=== PATIENT | male | born 1980 | race Caucasian/White ===

== ENCOUNTER 2024-09-12 00:20 | Emergency (ER) | payer OTHER, SELFPAY ==
[2024-09-12 00:22] VITALS: BP 151/88; PULSE 81; RESP 18; TEMP 36.8; O2SAT 98; BMI 41.3
[2024-09-12 00:24] VITALS: BP 151/88; PULSE 81; RESP 18; TEMP 36.8; O2SAT 98
--- NOTE | 2024-09-12 00:36 | ED.VIS.LOWEX ---
HPI History of Present Illness Chief Complaint: Wound Check Informant: patient Narrative Narrative: 44-year-old male had arthroscopic right knee surgery cleanout by Dr. Lewis 9 days ago. He states about 2 days ago started having increased pain and swelling along with some yellow clear discharge from one of the incisions that has gotten worse. Denies any fevers or systemic symptoms. Now he can barely bear weight on it or bend the knee. Denies any redness in the knee. Definitely a lot more swollen than it had been for the first week postoperative. Taking no anticoagulants right now. Not a diabetic. PFSH PFSH Medical History no medical history no medical history Home Medications ?Medication ?Instructions ?Recorded ?Last Taken ?Type cephalexin 500 mg capsule 500 mg PO Q6 #40 CAPSULES 09/12/24 Unknown Rx Allergy/AdvReac Type Severity Reaction Status Date / Time No Known Allergies Allergy Verified 09/12/24 00:22 Surgical History History of right knee surgery Social History Smoking Status: Current every day smoker tobacco type: cigarettes ROS ROS ED Constitutional Constitutional ED: Denies chills or fever(s) Musculoskeletal Musculoskeletal: Reports extremity pain; Denies neck pain Integumentary Denies Abrasions, rash or wounds Neurologic Neurologic: Denies paresthesias or weakness EXAM Physical Exam Const Vital Signs: 09/12/24 00:22 09/12/24 00:24 Temperature 98.2 F 98.2 F Temperature Source Oral Oral Pulse Rate 81 81 Respiratory Rate 18 18 Blood Pressure 151/88 H 151/88 H Blood Pressure Mean 109 109 Pulse Ox 98 98 Oxygen Delivery Method Room Air Room Air Positive well nourished and well developed General Appearance ED: well developed and NAD Neck full ROM and supple Back/Spine normal ROM and normal to inspection Extremity Extremity Narrative: Right knee swollen without erythema or excessive warmth. There are 2 arthroscopic surgical incisions, sutures are intact, there is no dehiscence or signs of infection/erythema. Am not able to express any discharge, but I am not pressing hard because the patient has diffuse tenderness at the incision site anteriorly especially. Limited range of motion but he is able to perform short arc range of motion about 15 degrees without limitation or difficulty, but limited beyond that due to swelling consistent with an effusion. This progresses to the suprapatellar pouch. Neurovascularly intact distally. Neuro oriented x3, no focal motor deficits and no sensory deficits noted Sensorium / Orientation: alert Psych mental status grossly normal and thought process normal Skin no wounds Rashes: no rashes MDM MDM MDM Narrative Medical decision making narrative: My suspicion is that the patient has an effusion, not necessarily an infection. I recommended arthrocentesis in order to treat his effusion and pain since he is not anticoagulated does not likely have hemarthrosis, and also to send diagnostics to evaluate for the possibility of infection which I am at a low suspicion for clinically. Patient was amenable to the arthrocentesis. However, he was not able to tolerate the pain and did not want me to repeat see the procedure note. No fluid was obtained. I offered him something for pain he declined. He has crutches, Edgar wrap, does not require any of that either. I offered to put him on some empiric antibiotics until he follows up with his surgeon which is in 3 days, and that is what he wants to do. Procedures Other Procedures Procedure(s): Arthrocentesis right knee: After informed written consent from the patient, he has a lateral incision so we made a medial approach with the knee and almost complete extension, prepped with isopropanol and chlorhexidine, locally anesthetized with 3 cc of plain 1% lidocaine, aspirating and taking care not to inject into the joint capsule, there was no bleeding. Reprepped with chlorhexidine sterile prep and glove set up, and attempted to enter the joint capsule with a 21-gauge needle, however the patient suddenly had severe pain with this, at the depth consistent with the joint capsule, jerked his knee, kicked with his other leg, and wanted to stop the procedure. I offered to reanesthetize and re-attempt to withdraw fluid, and he declines. Discharge Plan Triage Chief Complaint: Wound Check ED Provider: Duane Chavez Dx/Rx/DC Orders Clinical Impression: Effusion, right knee, Status post right knee surgery Instructions: ED Knee Effusion Prescriptions: New cephalexin 500 mg capsule 500 mg PO Q6 Qty: 40 0RF Primary Care Provider: Care Physician,No Primary Referrals: Jez Lewis MD [Non-Staff] - As soon as possible Print Language: Trin[place] Disposition Disposition: Home, Self Care
--- NOTE | 2024-09-12 00:45 | RAD_ITS ---
PROCEDURE: KNEE 1 OR 2 VIEWS 09/12/2024 REASON FOR EXAM: PAIN/SWELLING TECHNIQUE: 2 view(s) of the right knee COMPARISON: None. FINDINGS: No acute fracture or dislocation is identified. There is a moderate-sized suprapatellar knee joint effusion. Tricompartment degenerative changes are identified which are on a moderate to severe basis and greatest along the lateral knee joint compartment. There are prior postsurgical changes of the knee from ACL repair. There is mild anterior soft tissue swelling. RAD/Knee 1 or 2 Views IMPRESSION: 1. No acute fracture. 2. Moderate suprapatellar knee joint effusion. 3. Mild anterior soft tissue swelling. 4. Degenerative changes. Reading Location: [facility]
[2024-09-12] MEDS: Lidocaine 1% (20 ml mdv) 20 ML Vial 5 ML INFILT (01:09)
[2024-09-12 01:10] VITALS: BP 112/73; PULSE 73; RESP 18; TEMP 36.7; O2SAT 94
[2024-09-12] MEDS: Cephalexin 250 MG Capsule 500 MG PO (01:14)
== END 2024-09-12 01:17 | disposition home or self-care (01) ==
PROVIDERS: Emergency Provider Emergency Medicine; Visit Provider Emergency Medicine
DX: M25.461 Effusion, right knee (principal); F17.210 Nicotine dependence, cigarettes, uncomplicated
CPT/HCPCS: 73560; 99283